=== PATIENT | female | born 1945 | race Caucasian/White ===

== ENCOUNTER 2021-03-02 21:34 | Inpatient (IN) | payer OTHER ==
[~2021-03-02] VITALS: Ht 165.1 cm; Wt 64.4 kg
[2021-03-02 19:48] VITALS: BP 148/66
--- NOTE | 2021-03-03 00:37 | NUR ---
PATIENT ARRIVED ON UNIT AT APPROX 1945 ON 03/02 VIA STRETCHER. PATIENT AMBULATED TO BED X 1 ASSIST, VERY UNSTEADY GAIT, OBVIOUS RIGHT FOOT/LEG PAIN. A&OX4. PLEASANT, ACCEPTABLE TO ADMISSION, THOUGH STATED SHE DIDN'T KNOW SHE WOULD BE IN A ROOM WITH ANOTHER PATIENT. SHE ALSO EXPRESSED UNHAPPINESS WITH NOT HAVING A TV OR PHONE IN THE ROOM. STATED SHE FELL THIS MORNING AND BRUISED HER RIGHT GREAT TOE, BRUISING NOTED. BRUISING AND SWELLING TO RIGHT LOWER EXREMITY FROM A FALL EARLIER IN THE WEEK. PATIENT STATES SHE LOSES HER BALANCE OFTEN. HAS AN EXTENSIVE MEDICAL HX INCLUDING CVAS, BREAST CA, COLON CA, BOWEL BLOCKAGE, HIATAL HERNIA, HYPOTHYROIDISM, HYPERLIPIDEMIA, ANXIETY, RLE FX, PAIN. C/O /10 RLE PAIN AND HAS GUARDING/GRIMACING WITH MOVEMENT/AMBULATION. GIVEN PRN TRAMADOL WITH NIGHT TIME MEDS, EFFECTIVE. CURRENTLY LYING IN BED APPEARING TO BE ASLEEP. LIVES AT HOME WITH OF 58 YEARS WHO HAS SOME MEDICAL PROBLEMS WELL, MS SPECIFICALLY. USES A WALKER AT HOME, BUT IS TOO UNSTEADY FOR WALKER CURRENTLY. WHEELCHAIR OR LESLIE CHAIR USE. STATED SITTING UP RIGHT IS PAINFUL ON HER SPINE. PLACED ON HIGH FALL RISK PRECAUTIONS. WILL CONTINUE TO MONITOR.
[2021-03-03 06:55] LABS: CHOLESTEROL 145 mg/dL (<200); HDL CHOLESTEROL 60 mg/dL (>40); LDL CHOLESTEROL 56 mg/dL (<100); TC:HDL 2.4 Ratio (Not establshd); TRIGLYCERIDE 146 mg/dL (<150); VLDL 29 mg/dL (<40)
[2021-03-03 06:57] LABS: SERUM ASSESSMENT Clear
[2021-03-03 09:40] VITALS: BP 132/83
--- NOTE | 2021-03-03 16:15 | NUR ---
DID COME OUT OF BED BRIEFLY FOR BREAKFAST BEFORE TEARFULLY INSISTING THAT PAIN IS TERRIBLE AND EXACERBATED BY SITTING POSITION "I CAME TO HOSPITAL FOR MY APIN WHAT IS THE DOCTOR GOING TO DO ABOUT THAT" HIGH FALLS RISK WITH MULTIPLE RECENT FALLS-REQUIRES HEAVY ASSIST X1-2 D/T POOR BALANCE-ATAXIA.DENIES SI/SH/HI. APPETIE GOOD. CONVERSATION FOCUSES EXCLUSIVLEY ON MEDICATIONS AND PHYSICAL CONCERNS/ISSUES. ULTRAM 50MG GIVEN PO PRN AT 1200 FOR GENERALIZED PAIN RATED A 10 ON 1-10 SCALE-ALSO REPORTINGT SEVERE ANXIETY RATED A 10 STATING "I THOUGHT I WAS COMING INTO A REAL HOSPITAL WITH A TV TO HAVE MY PAIN CONTROLED" IS ALERT/ORIENTED X4.
[2021-03-03 19:30] VITALS: BP 141/74
[2021-03-03 23:06] LABS: GLYCOHEMOGLOBIN (HGB A1C) 5.2 % (4.8-5.6)
--- NOTE | 2021-03-04 01:17 | NUR ---
PATIENT IS LYING IN BED, NO S/S OF DISTRESS. C/O OF SOME ANXIETY AND GENERALIZED PAIN. PROVIDED PRN CLONIPIN AND ULTRAM. APPEAR TO BE EFFECTIVE. IS PREOCCUPIED WITH SOMATIC COMPLAINTS, DENIES ANY PSYCHIATRIC ISSUES ASIDE FROM ANXIETY. DENIES SI/HI/AVH/DEPRESSION. IS VERY REPETITIVE AND FOCUSED ON THE TORODAL INJECTION SHE RECEIVED EARLIER IN THE DAY. SHE ASSUMED IT WAS A REPETITIVE ORDER AND WAS SURPRISED WHEN TOLD IT WAS A ONE TIME ORDER. HAS DIFFICULTY SLEEPING AND SEEMS TO BE FORGETFUL, SINCE SHE ASKS THE SAME QUESTIONS MANY TIMES. WILL CONTINUE TO MONITOR.
[2021-03-04 10:41] VITALS: BP 154/85
--- NOTE | 2021-03-04 12:38 | NUR ---
SW met with pt who said that she has been falling a lot and does not remember doing it. She says she also has been arguing with her much in the past year, but they normally do not argue. She admits that something is not right with her behaviors and her falls, and she is happy that she will have a neuropsych exam on Tuesday. SW reviewed pt's chart and noticed it lacked a dpoa doc. SW confirmed with pt that her son is dpoa. SW team will continue to follow pt during her stay on this unit.
--- NOTE | 2021-03-04 13:03 | NUR ---
Assess due to new admit to [facility] with hallucinations, closed head injury following a fall. Pt on regular diet, eating 90-100% of meals so far. BMI is 22 wnl. B12 levels wnl. Consider low nutrition risk. Follow wt trends weekly for no significant loss from 133 lb. Low nutrition risk
[2021-03-04 20:14] VITALS: BP 138/56
--- NOTE | 2021-03-04 22:35 | H ---
[facility] [place], [place] [address] HISTORY AND PHYSICAL Name: SHASHA DURANT Room #: 527B-B ADM IN M.R.#: [id number] Admission: 03/02/21 Attend Phys: Idalmis Barbosa DO Discharge: Date of : 41 Report #: [id number] THIS REPORT FOR: cc: FAM - Family physician unknown FAM - Family physician unknown Idalmis Barbosa DO ~ DOC #: [id number] IDALMIS Barbosa DO DATE OF SERVICE: 03/03/2021 INPATIENT PSYCHIATRIC EVALUATION ATTENDING PSYCHIATRIST: Idalmis Barbosa DO MEDICAL CONSULTANTS: Penny Cheng and Mihir Jaime M.D. and his hospitalist team. SOURCES OF INFORMATION: Conversation briefly in the ER with son and , interview with the patient, chart reviewed. CHIEF COMPLAINT: Right hip pain. HISTORY OF PRESENT ILLNESS: This is a 75-year-old female, , who was brought to the ER by her family. ER report noted she has been having severe insomnia, stays up all night, sometimes even over 24 hours continuously. She will have waxing and waning of severe personality changes and when she is "normal" then becomes enraged and has significant cursing. Family also notes that she has hallucinations including seeing people who are not there. She has days where she likes certain foods and the next day she hates them. She did have a fall in the morning that she was admitted where she landed by the refrigerator. She states she hit her head and now has right leg pain. She does have general fibromyalgia and often has severe pain. PAST MEDICAL HISTORY: Includes colon cancer, I am unclear whether she is planning to have it removed or had it removed. Peripheral neuropathy in all extremities, fibromyalgia, chronic constipation, history of 3 transient ischemic attacks. PAST SURGICAL HISTORY: Numerous include tonsillectomy, appendectomy, cervical fusion, low back surgery with pins, blood transfusion with childbirth. She had a TRAM flap in 1986, 6 units of blood transfused at that time. Bilateral mastectomy, no lymph node dissection, precancerous tissue. Cholecystectomy, hiatal hernia repair and hysterectomy. ALLERGIES: STEROIDS AND PENICILLINS. [facility] [place] [place] [address] [place] [address] HISTORY AND PHYSICAL Name: SHASHA DURANT Room #: 527B-B ADM IN ..#: [id number] Admission: 03/02/21 Attend Phys: Idalmis Barbosa DO Discharge: Date of : 41 Report #: [id number] SOCIAL HISTORY: Known history of alcohol abuse. REVIEW OF SYSTEMS: From the ER include: CONSTITUTIONAL: Denies fever, chills, malaise or unexplained weight change. EYES: Denies eye pain, visual change, or discharge. HENT: Denies hearing changes, ear drainage, ear infections, ear pain, neck pain or neck stiffness. RESPIRATORY: Denies cough, shortness of breath, hemoptysis or respiratory distress. CARDIOVASCULAR: Denies chest pain, chest pain with exertion or edema. GASTROINTESTINAL: Denies abdominal pain, nausea, vomiting or diarrhea. GENITOURINARY: Denies, burning, frequency or dysuria. MUSCULOSKELETAL: Denies back pain, joint pain, muscle weakness or myalgias. SKIN: Denies rash. NEUROLOGIC: Denies weakness, headaches or loss of consciousness. Otherwise, 10-point review of systems was negative. IMAGING: From the ER, head CT showed no evidence of acute intracranial hemorrhage or other acute intracranial abnormality. There was a patchy low attenuation within the bilateral periventricular and subcortical white matter consistent with moderate age indeterminate, likely chronic small vessel ischemic changes, mild generalized parenchymal volume loss. Foot x-ray of the right foot showed no acute fracture or dislocation. Cervical spine CT, multilevel cervical spondylosis. No CT evidence of acute cervical spinal fracture or subluxation. PHYSICAL EXAMINATION: VITAL SIGNS: Today, temperature 36.4, pulse 68, respirations 18, BP 132/83, O2 sat 95%. MUSCULOSKELETAL: Lying in bed, complaining of right hip pain, unkempt white female, high risk for falls. MENTAL STATUS EXAMINATION: This is a well developed, BMI 22.1, weight 60.328 kilos, height of 165.1 cm female, wearing glasses. Attention fair. Concentration limited. Speech normal rate, rhythm and tone. Thought process linear and goal directed. Thought content focused somatically. She was oriented to the month, day, date, year, place and hospital. Mood and affect congruent, euthymic. Denied suicidal or homicidal ideation, auditory, visual, or tactile hallucinations. Insight and judgment fair to limited. Fund of knowledge, no greater than average. FORMULATION: A 75-year-old female coming in with combinations of mood lability, psychosis and subjective cognitive impairment. DIAGNOSES: Unspecified psychosis, rule out major neurocognitive disorder, Lewy body dementia is in differential. Medical comorbidities be [facility] [place] [place] [address] [place] [address] HISTORY AND PHYSICAL Name: SHASHA DURANT Room #: 527B-B ADM IN MMatthew.#: [id number] Admission: 03/02/21 Attend Phys: Idalmis Barbosa DO Discharge: Date of : 41 Report #: [id number] managed by the hospitalist include hypokalemia, renal failure, hypertension, hyperlipidemia, history of cerebrovascular accident, history of colon and breast cancer, hypothyroidism, chronic neck pain, degenerative joint disease. PLAN: The patient is a voluntary admit to [facility] at [facility] [place] [place] to evaluate, stabilize. Hospitalist is consulted. At this time, I really do not have a great cognitive diagnosis. CURRENT MEDICATIONS: Ferrous sulfate 325 mg p.o. daily, Zetia 10 mg p.o. daily, duloxetine 30 mg in the morning and 60 mg in the evening, amlodipine 10 mg p.o. daily, pantoprazole 40 mg p.o. daily, levothyroxine 100 mcg oral daily, Klonopin 0.5 mg q. 8 hours p.r.n., lamotrigine 100 mg p.o. at bedtime, Requip 0.25 mg oral at 22:30 hours, memantine 10 mg p.o. b.i.d. I am thinking she has been diagnosed with dementia previously but I will consult Dr. Hi neuropsychology. Estimated length of stay 10-14 days. I will double check with her family if she has had a dementia workup. If not, we will do routine labs. She has already had imaging including B12, folate, syphilis antibody, vitamin D. STRENGTH: She is insured, supportive family. WEAKNESSES: Advanced age, morbidities. Time spent on this case today is greater than 60 minutes, greater than 50% of the time spent on reviewing records and coordination of care. DO ERUM Mike/LUCIAN/BARRINGTON <ELECTRONICALLY SIGNED> By: Idalmis Barbosa DO 03/04/21 [id number] Idalmis Barbosa, /nt
--- NOTE | 2021-03-05 04:47 | NUR ---
Assumed care on 03/04/21 @ 19:15, in bed awake alert and oriented x4. Pleasant affect noted and able to verbalize needs and wants. Took meds whole with water. Requested tramadol 50mg for pain, provided @ 23:10 along with ClonaZepam 0.5mg for anxiety. Bed in low position, bed alarm set.
[2021-03-05 08:43] VITALS: BP 138/81
[2021-03-05 18:33] LABS: CREATININE 1.2 mg/dL (0.6-1.0); POTASSIUM 3.4 mmol/L (3.5-5.1)
--- NOTE | 2021-03-05 19:52 | NUR ---
Alert and orientated X3, denies SI/HI. States she has pain of 8-10 in back with multiple requests to lay down flat. Tramodol given with some relief. Does not show physical symptoms of pain with multiple requests for different items/tasks to be done and then she will mention pain. Slept soundly after Tylenol given in early afternoon. Able to stand and ambulate several steps with minimal assistance. Spent most of day in gerichair or bed. Breath sounds clear. Reg HR auscultated. Color pink with brisk capillary refill and palpable peripheral pulses. Active bowel sounds oer soft, rounded abdomen. States she has not had BM in several days, MOM given per request. Labs drawn, BG 54, repeat accucheck after dinner was 112. K+ 3.4 with cr of 1.2. Msg left for JOSSELINE Larson to call regarding results, Dinorah GÓMEZ will f/u on evening shift.
[2021-03-05 19:54] VITALS: BP 124/61
[2021-03-06 09:57] VITALS: BP 132/68
--- NOTE | 2021-03-06 13:37 | NUR ---
Alert and orientated X4. States she is having alot of pain but not showing s/o distress. Reports pain 9/10 despite Tramadol given early AM and subsequent tylenol. Dr. Barbosa notified, ketrolac given IM per order. Sleeping soundly after med but still reported pain after waking up. Report read to pt by BOTTLE WASHER MACHINE d/t pt stating she couldn't read document. Denies SI/HI. Breath sounds clear. Reg HR auscultated. Color pink with brisk capillary refill and palpable peripheral pulses. Yellow urine per toilet. Active bowel sounds over soft, rounded abdomen. Pt. requesting Senna S, Dr. Ford notified. Pt. able to take several steps with slightly unsteady gait. Currently in day room with peers without s/o distress.
[2021-03-06 19:38] VITALS: BP 121/58
[2021-03-06 20:06] LABS: SYPHILIS AB Non Reactive (Non Reactive)
--- NOTE | 2021-03-07 02:16 | NUR ---
Assumed care on 03/06/21 @ 1915, seated in the day room in a berenice chair, watching TV and socializing with peers and staff. Pleasant affect noted. A&Ox3-4. Able to verbalize needs and wants. Denies SI/HI and hallucinations. Continent and ambulates to toilet with x1-2 assist, unsteady gait noted. Snyder scale of 85, high fall risk. Great toe nail is blue, reports the doctor will work on it for her tomorrow. Pedal pulses present bilat. Respirations even and unlabored bilat, HRRR, ABD N x 4Q and BM on 03/06 noted. Reports pain of /10, Tylenol 650 provided @ 20:00. Reports anxiety, Clonezapam provided @ 21:45. Continues to have back pain and right hip pain of 05/05, Tramadol 50 provided @ 21:45, just before going to sleep. Takes meds whole with water. Bed in low position, bed alarm set. Will continue to monitor as per unit protocol for safety and comfort.
[2021-03-07 07:30] VITALS: BP 146/73
--- NOTE | 2021-03-07 12:58 | NUR ---
Alert and orientated X4. Very concerned with pain. Reminded that she had just received Tramadol. Then c/o burning pain in epigastric region, resolved with mylanta. Requesting Sennokot S stating that she did not have stool as documented. Then asked for clonapam but did not state reason for med. When offered tylenol for pain she stated that she wanted ketrolac like she received yesterday. Above discussed with Dr Godinez who rounded mid morning. When given Tylenol she was snoring upon reassessment. Denies SI/HI. When observed in day room she is smiling, calm and interactive with peers. Breath sounds clear. Reg HR auscultated. Color pink with brisk capillary refill and palpable peripheral pulses. No edema noted. Yellow urine per toilet. Active bowel sounds over soft, flat abdomen. Old bruising on R leg and R great toenail darkened. Ambulates short distances with slightly unsteady gait. Sitting in day room until midmorning when she layed down, states gerichair hurts her back.
[2021-03-07 19:40] VITALS: BP 122/62
--- NOTE | 2021-03-08 05:57 | NUR ---
03-07-21 CARE TRANSFERRED 1899. LATER PT AAOX4, VSS, RR EVEN AND NONLABORED ON RA. PT DENIES SI/HI BUT REPORTS PAIN 8 ON 0-10 SCALE, PT PRESENTS TEARFUL BUT COOPERATIVE. LATER DURING PAIN REASSESSMENT PT REPORTS NO PAIN RELIEF, T REPORTED FEELING ANXIOUS AND NEEDING SOMETHING FOR HER ACID REFLUX. PRN MEDICATION, NOTED PT RESTING WITH EYES CLOSED. ZERO S/S OF ACUTE DISTRESS NOTED, PT WILL CONTINUE TO BE MONITOR PER [facility] PROTOCOL.
[2021-03-08 07:48] VITALS: BP 153/87
[2021-03-08 09:14] VITALS: BP 153/87
[2021-03-08 20:29] VITALS: BP 144/97
--- NOTE | 2021-03-08 21:28 | NUR ---
ASSUMED CARE AT 1900. PATIENT LYING IN BED AWAKE. NO S/S OF DISTRESS. EXPRESSES DISCOMFORT AND GENERALIZED PAIN. PROVIDED SCHEDULED ACETAMINOPHEN WITH HS MEDICATIONS. C/O DRY EYES, PROVIDED PRN EYE DROPS. HAS MULTIPLE SOMATIC COMPLAINTS RELATED TO "TIGHTNESS" AND "RESTLESS" LEGS. ASKS MANY QUESTIONS ABOUT WHAT HER MEDICATIONS ARE AND WHAT THEY ARE FOR. SOMETIMES FORGETS WHICH MEDS ARE MEDS SHE HAS BEEN TAKING AT HOME. PROVIDED RE-EDUCATION. WILL CONTINUE TO MONITOR.
[2021-03-09 09:36] VITALS: BP 148/70
--- NOTE | 2021-03-09 10:52 | NUR ---
Followup: consistently eating well, wts up 9 lb from admit wt 133 lb. Remains low nutrition risk
--- NOTE | 2021-03-09 13:32 | NUR ---
RT Progress Note- Benitez has been present in most recreation therapy groups since her arrival to the unit. Though she has been present, her participation is variable as she frequently complains of pain and inability to actively engage due to this. Most 1;1 conversation is regarding her pain and lack of sleep. She is difficult to redirect from this topic and quickly finds ways to discuss her challenges during conversation. CLASSROOM INSTRUCTIONAL AIDE will continue to encourage participation and development of coping skills.
--- NOTE | 2021-03-09 14:47 | NUR ---
ASSUMED PT CARE THIS AM. PT A&OX4, ABLE TO MAKE NEEDS KNOWN. PATIENT COMPLAINS OF GENERALIZED PAIN, GIVING PAIN MEDS PER EMAR NEEDED. PATIENT DENIES WANTING TRAMADOL UNTIL BEDTIME TONIGHT. PATIENT COMPLAINS OF TINGLING DOWN THE RIGHT LEG A CHRONIC ISSUE. PATIENT HAS BEEN COOPERATIVE WITH CARES.
[2021-03-09 19:43] VITALS: BP 127/63
--- NOTE | 2021-03-09 22:14 | NUR ---
PATIENT CARE ASSUMED AT APPROX 1900. PATIENT LYING IN BED, TALKING TO ON PHONE WHEN THIS HOSPITAL AIDE ENTERED ROOM FOR ASSESSMENT AND MEDICATOIN ADMINISTRATION. PATIENT C/O PAIN 9/10 GENERALIZED PAIN AND CONSISTANTLY C/O POOR SLEEP. PROVIDED PRN TRAMADOL AND TRAZADONE PER EMAR ORDERS. PATIENT STATED SHE WAS TOLD THERE WOULD BE A FAMILY MEETING TOMORROW (TUESDAY) PER THE DOCTOR, BUT SHE STATED NONE OF HER FAMILY HAD BEEN NOTIFIED. SPOKE TO PATIENT'S , WHO STATED HE HAD NOT BEEN NOTIFIED OF ANY MEETING - EXPRESSED TO THAT HE WOULD BE CALLED IN THE MORNING CONCERNING THE MEETING, IF THERE WAS GOING TO BE ONE. PATIENT IS PLEASANT NATURED, THOUGH CAN BE TENDS TO DEMAND MUCH OF THIS HOSPITAL AIDE'S TIME AND CAN BE DIFFICULT TO GET AWAY FROM PATIENT HAS DIFFICULTY ENDING THE CONVERSATION AND CAN BE TANGENTEAL IN HER SPEECH. WILL CONTINUE TO MONITOR.
[2021-03-10 10:28] VITALS: BP 134/71
--- NOTE | 2021-03-10 11:30 | NUR ---
CORDELIA was informed by Dr. Barbosa that he scheduled a family meeting for pt in person at 1300 today to discuss with her and her family her neuropsych reports results. SW team will continue to follow pt during her stay on this unit.
--- NOTE | 2021-03-10 17:33 | NUR ---
Alert and orientated X4. Calm, cooperative and conversive. Denies SI/HI. Requesting eye drops for dry eyes. Breath sounds clear. Reg HR auscultated. Color pink with brisk capillary refill and palpable peripheral pulses. No edema noted. Continent of yellow urine per toilet. Active bowel sounds over soft, rounded abdomen. States she has not had BM since admission, documented BM in last several days. Senna started per order. Ambulating with walker with PT with slightly unsteady gait. Whenever pain is assessed she always rates it a 8-9. She is sitting calmly conversing with peers and appears happy and interactive with no outward signs of distress. Spoke with Dr. Milner and Dr. Barbosa. Tramadol given per Dr. Barbosa order. Upon reassessment of afternoon Tylenol she was focused on epigastric pain, mylanta given. Currently eating dinner without s/o distress, talking with peer.
[2021-03-10 20:33] VITALS: BP 134/64
--- NOTE | 2021-03-11 07:57 | NUR ---
ASSUMED CARE ON 03/10/21 @ 1900, A&oX 3-4 CONTINENT AND AMBULATES TO THE TOILET X1 ASSIST. AFTER MEDICATIONS PROVIDED, ASKS FOR MULTIPLE MEDS REPEATEDLY. REORIENTED TO MEDS PROVIDED. BED IN LOW POSITION, BED ALARM SET.
[2021-03-11 10:40] VITALS: BP 148/89
[2021-03-11 11:19] VITALS: BP 151/81
--- NOTE | 2021-03-11 13:05 | NUR ---
1300 RESUMMED CARE FROM OVERNIGHT SHIFT THIS AM, PATIENT IN ROOM LYING QUIET SHE DID ASK FOR PAIN MEDICATION WHEN DOING MY ASSESSMENT. PATIENT ALERT ORIENTED TIMES 4 PATIENT ATE BREAKFAST TOOK MEDICATION WITHOUT INCIDENCE. PATIENT DENIES SI/HI/AH/VH AT PRESENT PATIENTS ABDOMEN SOFT BOWEL SOUNDS PRESENT. PATIENTS LUNGS CLEAR PATIENT HAS SOME ANXIETY ABOUT THE NEWS SHE; RECEIVED ABOUT HER AND HER GOING TO [facility]ING [facility]AC[facility]. I EXPLAINED TO THE PATIENT THAT SHE NEEDS AROUND THE CLOCK CARE AND HER HAS MS AND HE IS WC BOUND. PATIENT STATES SHE UNDERSTANDS BUT FEELS SHE IS LOSING HER INDEPENDENCE. PATIENT CALM COOPERATIVE PARTICIPATES IN GROUPS WILL CONTINUE TO MONITOR PATIENT FOR SAFETY AND BEHAVIORS.
[2021-03-11 19:18] VITALS: BP 140/75
--- NOTE | 2021-03-12 03:35 | NUR ---
03-11-21 CARE TRANSFERRED 1899. LATER PT AAOX3, VSS, RR EVEN AND NONLABORED ON RA. PT DENIES SI/HI/VAH, PT REPORTS PAIN IN LOWER BACK AT A 9 ON 0-10 SCALE. PT PRESENTS FOCUSED ON PAIN MANAGEMENT, REMAINS CALM AND COOPERATIVE. LATER PT REPOSITIOON FOR COMFORT. DURING MEDICATION ADMIN PT HAD NO DIFFICULTIES TAKING MEDICATION WHOLE WITH WATER. REASSESSMENT OF PAIN NOTED PT RESTING WITH EYE CLOSED. LATER RESPONSED TO BED ALARM OBSERVED PT GAIT WITH WALKER, SHUFFLING UNSTEADY GAIT, STANDBY ASSIST. PT BED WAS ADJUSTED FOR COMFORT AND BE REPORTED HER PAIN WAS A 8 ON 0-10 SCALE. PT REASSURED THAT WE WILL ACCESS AGAIN WHEN TIME FOR NEXT MEDICATION. LATER NOTED PT RESTING WITH EYES CLOSED. PT WILL CONTINUE TO BE MONITOR PER [facility] PROTOCOL.
[2021-03-12 10:01] VITALS: BP 123/64
--- NOTE | 2021-03-12 15:27 | NUR ---
CORDELIA returned Ryland Serra and comfirmed that pt can discharge on Tuesday. CORDELIA and Ryland agreed upon a 1pm discharge. He also said he has an appt with an defense attorney on Tuesday to sign dpoa docs with pt. CORDELIA team will continue following pt during her stay on this unit.
--- NOTE | 2021-03-12 15:58 | NUR ---
Alert and orientated X4. Continues to rate back pain "a high 8" with some relief from Tylenol. Denies SI/HI. Breath sounds clear. Reg HR auscultated. Color pink with brisk capillary refill and palpable peripheral pulses. No edema noted. Yellow urine per toilet. Active bowel sounds over soft, flat abdomen. States she has not had a BM since prior to admission but several are documented. Is on scheduled Senna. Ambulates with slow, steady gait.
[2021-03-12 19:14] VITALS: BP 148/84
--- NOTE | 2021-03-13 02:12 | NUR ---
ASSUMED CARE ON 03/13/21 @ 1900, COOPERATED WITH ASSESSMENT, HRRR, LUNGS CTA BILAT, ABD NX4Q, ABDOMEN ROUND AND FIRM. LARGE FORMED BM OVERNIGHT FOLLOWING PRUNE JUICE AT HS. RATES PAIN 8/10, TRAMADOL AND TYLENOL PROVIDED. ASKS REPEATEDLY FOR PAIN MEDS, REMINDED OF HAVING TAKEN @ HS, REPORTS POOR PAIN MANAGEMENT. REPORTS HAVING SPOKEN TO SON, , GRANDSON AND GRANDDAUGHTER TODAY. ALSO SPOKE TO @ HS. LIKES TO STAY ON THE PHONE LONGER THAN 10 MINUTE TIME LIMIT, RESISTS FOLLOWING HOSPITAL RULES. WILL CONTINUE TO MONITOR PER UNIT PROTOCOL FOR SAFETY AND COMFORT.
[2021-03-13 09:37] VITALS: BP 100/62
--- NOTE | 2021-03-13 13:06 | NUR ---
Alert and orientated X4. Rating pain 8-10 without significant relief from Tylenol, Tramadol and ketrolac. Interactive with peers and staff without s/o distress. Denies SI/HI. Ambulating with walker with slightly irregular gait. Breath sounds clear. Reg HR auscultated. Color pink with brisk capillary refill and palpable peripheral pulses. No edema noted in lower extremities. Yellow urine and large, formed green-brown stool per toilet. Currently sitting in gerichair watching TV with peers. No s/o distress.
[2021-03-13 20:21] VITALS: BP 159/133
--- NOTE | 2021-03-13 22:41 | NUR ---
Alert/oriented x 4, very pleasant. Pain rated at 7 generalized, Lung sounds clear, HRR, Abd soft non tender + BS x 4 Q. Amb with walker, Will continue to monitor through out shift and follow Q 12 min [facility] monitoring per protocol. Denies SI/HI/AH/VH.
[2021-03-14 09:15] VITALS: BP 161/71
[2021-03-14 09:17] VITALS: BP 161/71
--- NOTE | 2021-03-14 09:19 | NUR ---
0915 RESUMMED CARE FROM OVERNIGHT SHIFT THIS AM, PATIENT IN ROOM GETTING READY FOR BREAKFST. PATIENT ALERT ORIENTED TIMES 4 PATIENT DENIES ANY SI/HI/AH/VH AT PRESENT. PATIENTS ABDOMEN SOFT BOWEL SOUNDS PRESENT PATIENTS LUNGS CLEAR. PATIENTS AFFECT BRIGHTER PATIENT IS LESS DRUG SEEKING CALM COOPERATIVE. PATIENT INTERACTS WITH OTHER PATIENTS WILL CONTINUE TO MONITOR PATIENT FOR SAFETY AND BEHAVIORS.
[2021-03-14 19:39] VITALS: BP 140/65
--- NOTE | 2021-03-14 23:42 | NUR ---
Pt is A/O x 4, very pleasant, sitting day room relaxing, wanted to use telephone to call family, uses walker to ambulate, wanted extra blankets when she went to bed. Lung clear, HRR, Active Bowel sounds x 4 q. Pt took her medications w/o difficulty, Denies SI/HI/AH/VH. Will continue to monitor.
[2021-03-15 09:34] VITALS: BP 142/94
--- NOTE | 2021-03-15 09:49 | NUR ---
CORDELIA contacted Ryland Serra to inquire if he was able to choose a psych doctor and a PCP for pt? At pt's family meeting on 03/10 CORDELIA provided to him a listing of providers pt's insurance covers. He said he has yet to identify either yet, and has put in a few calls and is waiting on them to be returned. CORDELIA talked with him about [facility] and advised that it would be good to start services there for psych as only follows pt's for up to 30 days. Ryland said ok. CORDELIA team will continue to follow pt during her stay on this unit.
[2021-03-15 09:54] VITALS: BP 142/94
--- NOTE | 2021-03-15 12:15 | NUR ---
1200 RESUMMED CARE FROM OVERNIGHT SHIFT THIS AM, PATIENT IN ROOM RESTING QUIET. PATIENT CAME TO DAY ROOM ATE BREAKFAST TOOK MEDICATION WITHOUT INCIDENCE. PATIENT ALERT ORIENTED TIMES 4 PATIENT DENIES SI/HI/AH/VH AT PRESENT. PATIENTS ABDOMEN SOFT BOWEL SOUNDS PRESENT PATIENTS LUNGS CLEAR. PATIENT CALM COOPERATIVE INTERACTING WITH OTHER PATIENTS WILL CONTINUE TO MONITOR PATIENT FOR SAFETY AND BEHAVIORS.
[2021-03-15 19:20] VITALS: BP 125/64
--- NOTE | 2021-03-16 01:49 | NUR ---
PATINET CARE WAS RESUMED AT 1900. SHE IS ALAERT AND ORIENTED. SHE AMBULATES WITH MODERATE ASSIST WITH ADLS. SHE C/O PAINS TO HER LOWER BACK AND PRN TRAMADOL WAS GIVEN WITH SOME GOOD EFFECT. BS IS ACTIVE AND LUNGS ARE CLEAR. SHE DENIES AVH/SI/HI. SHE IS VERY HAPPY AND WENT AROUND THANKING THE STAFF FOR GOOD CARE GIVEN TO HER DURING THIS STAY. SHE IS IN BED NOW WITH ALARM ACTIVATED, BED IS LOCKED. SHE HAS A NON SKID SOCKS ON WITH A YELLOW TOP. Q 12 MINUTES CHECK IS ONGOING , CONTINUE CARE.
--- NOTE | 2021-03-16 09:36 | NUR ---
0700 ASSUMED CARE OF PATIENT, PATIENT IN BED AT THAT TIME. PATIENT AMB WITH WALKER WITH STEADY GAIT. PATIENT ALERT, LS CLEAR, BS ACTIVE. VS 149/90, 79, 17, 98.2, 98% RA. C/O PAIN TO LOWER BACK RATING A 8 ON NUMERIC PAIN SCALE. TYLENOL 650MG PO GIVEN FOR PAIN. MEDICATION TAKEN WHOLE WITHOUT DIFFICULTY. AFTER BREAKFAST PATIENT TO ROOM.
[2021-03-16 10:13] VITALS: BP 149/90
--- NOTE | 2021-03-16 11:02 | NUR ---
SW provided resources for discharge to include instructions on how to contact [facility] for follow up and a listing of nursing homes in the area if they decide to they need that resource. SW team will remain available.
--- NOTE | 2021-03-16 12:13 | NUR ---
followup: remains on [facility] since 03/02. Eating 50-100% meals. No new wt since 03/08 which was up 9 lb from admit wt. Low nutrition risk
[2021-03-16] MEDS ORDERED: IRON325 PO (12:40)
[2021-03-16] MEDS ORDERED: ZETIA10 MG PO (12:40)
[2021-03-16] MEDS ORDERED: NORVASC10 MG PO (12:41)
[2021-03-16] MEDS ORDERED: TRAMADOL 50 MG50 MG PO (12:42)
[2021-03-16] MEDS ORDERED: TYLENOL EXTRA500 MG PO (12:44)
[2021-03-16] MEDS ORDERED: LAMICTAL100 MG PO (12:45)
[2021-03-16] MEDS ORDERED: CYMBALTA60 MG PO (12:47)
[2021-03-16] MEDS ORDERED: REQUIP 1 MG TABL1 M1 PO (12:50)
[2021-03-16] MEDS ORDERED: PROTONIX 20 MG20 MG PO (12:51)
[2021-03-16] MEDS ORDERED: NAMENDA 10 MG T10 MG PO (12:51)
[2021-03-16] MEDS ORDERED: PEPCID20 MG PO (12:51)
[2021-03-16] MEDS ORDERED: HOME MEDICATION OPHTHALMIC (12:52)
[2021-03-16] MEDS ORDERED: SYNTHROID100 MC1 PO (12:52)
[2021-03-16 13:03] VITALS: BP 149/90
--- NOTE | 2021-03-17 09:14 | D ---
[facility] [place] [address] DISCHARGE SUMMARY Name: SHASHA DURANT Room #: 527B-B [facility] IN M.R.#: [id number] Admission: 03/02/21 Attend Phys: Idalmis Barbosa DO Discharge: 03/16/21 Date of : 41 Report #: [id number] THIS REPORT FOR: cc: FAM - Family physician unknown FAM - Family physician unknown Idalmis Barbosa DO ~ DOC #: [id number] IDALMIS Barbosa DO DATE OF SERVICE: 03/16/2021 INPATIENT PSYCHIATRIC DISCHARGE SUMMARY DATE OF ADMISSION: 03/02/2021 DATE OF DISCHARGE: 03/16/2021. ATTENDING PSYCHIATRIST: Idalmis Barbosa DO MARINE SPECIALIST: Samuel Godinez MD. CONSULTING PHYSICIAN: Amandeep Hi, Ph.D. Neuropsychology. DISCHARGE DIAGNOSES: Major neurocognitive disorder, major neurocognitive disorder, officially unspecified; however , there was some evidence of cerebrovascular disease and less likely Lewy body disease with behavioral disturbance. Additionally, diagnosis includes unspecified psychosis resolved. Medical comorbidities include status post fall; hypokalemia, replaced; mild renal failure; hypertension; hyperlipidemia; history of remote cerebrovascular accident; history of colon cancer; breast cancer; hypothyroidism; chronic neck pain; degenerative joint disease. The patient is discharging to her private residence where she lives with her . The patient requires 24/ care and supervision. This has been made clear to her and son, Ryland. They agreed to provide this. Officially, I did recommend assisted living placement for the patient and her at this point, but family is wanting to look into that further after discharge. DISCHARGE MEDICATIONS: Discharge medications were sent to the [facility]: Ferrous sulfate 325 mg oral daily for supplementation, ezetimibe, which is Zetia 10 mg oral daily for hypertriglyceridemia, amlodipine besylate 10 mg oral daily for hypertension. Hold, if BP less than 100. Tramadol 50 mg q. 6 hours p.r.n. for pain level 6-10, Rx was given strictly for #15 for that, Tylenol scheduled 1000 mg oral 3 times a day for chronic pain, lamotrigine 100 mg oral at bedtime for mood stabilization, duloxetine 60 mg oral twice daily for depression, Requip 0.5 mg oral daily at 1200 and 2100 for restless legs syndrome, memantine 10 mg oral twice daily for cognitive enhancement, famotidine 20 mg oral daily for GERD, pantoprazole 40 mg also oral daily for GERD, levothyroxine 100 mcg oral daily for thyroid replacement and she [address] [address] DISCHARGE SUMMARY Name: JOSE DURANTMAGUIJosie Maximo Room #: 527B-B [facility] IN M.R.#: [id number] Admission: 03/02/21 Attend Phys: Idalmis Barbosa, Discharge: 03/16/21 Date of : 41 Report #: [id number] has a dry eye home preparation every 2 hours as needed for dry eyes. DIET: The patient has a regular diet. ACTIVITY LEVEL: She is a min assist with a walker for ambulation. The patient was given crisis suicide hotline information. AFTERCARE: As follows: She was referred to [facility] to establish outpatient psychiatric care. The patient has a primary care physician, encouraged to see within one month. LABORATORY DATA: On this admission, hematology from 03/02/2021, white count slightly low at 3.7, H and H 12.4 and 37.4, platelet count 244. Chemistries on this admission, sodium 148, potassium 3.4, chloride 103, bicarbonate 24, anion gap 15, BUN 18, creatinine 1.3, estimated GFR 44, glucose 54. Estimated average glucose 103. A1c 5.2, calcium 9.2, total bilirubin 0.4, AST 23, ALT 24, alkaline phosphatase 129, total protein 7.3, albumin 3.8, triglycerides 146, cholesterol 145, LDL 56, HDL 60. Vitamin D normal at 56.6. TSH normal at 2.337. B12 normal at 867. Urinalysis showed trace blood, otherwise normal. Syphilis serology nonreactive. COVID-19 Merrill test was negative. IMAGING: On this admission, she had a head CT on 03/02/2021, which showed no evidence of acute intracranial hemorrhage or other acute intracranial abnormality. 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 REASON FOR ADMISSION: A 75-year-old female, , living with her , brought to the ER by her family. They report the patient is having severe insomnia, staying up all night, sometimes over 24 hours. They have noticed personality change, her becoming enraged, uncharacteristic cursing, which is new for her. Also, reports she has hallucinations including seeing people, who were not there. She did have a fall in the morning that she was brought to the ER where she landed by the refrigerator. She states she hit her head and now has right leg pain at the time of admission. HOSPITAL COURSE: The patient was admitted to Geriatric Psychiatry Unit. I had been given a heads up of her admission through a hospital employee as an occupational therapist and knows her granddaughter. In any event, there was concern for her developing dementia, so I did a full workup including consulting neuropsychologist. Neuropsychological testing was done around 03/06/[address] Hi. Findings were neuropsych profile consistent with major neurocognitive disorder, probable vascular disease and possible lewy body disease, with agitation and disinhibited behavior of moderate severity as well as major depressive disorder, recurrent. [facility] [address] [address] DISCHARGE SUMMARY Name: LINAJessicaCOLLINSDEVAN Marsh Room #: 527B-B [facility] IN [facility].#: [id number] Admission: 03/02/21 Attend Phys: Idalmis Barbosa DO Discharge: 03/16/21 Date of : 41 Report #: [id number] During the admission, the patient was highly somatically focused. We went back and forth for several pain management regimes, ended up allowing her to have a tramadol regime and discontinue clonazepam. It was flushed out, but the patient had a history of misuse of both yydt-[id number] medications, possibly prescription medications including diphenhydramine. The patient disputed she had a history of alcohol. Over the course of admission, the patient was sleeping well, eating decent, making gains with physical therapy in terms of her gait, and endurance. We had a couple of family meetings including a sit-down, formal one. Decision was made by the family for the patient to return home initially. Today, at the day of discharge, the patient was not suicidal or homicidal. BMI on discharge 23.6, temperature 36.8, pulse 79, respirations 17, BP 149/90, O2 sat 99%. Musculoskeletal exam, she has an assisted gait, using a walker, standby assist. Wears glasses. The glasses have been broken throughout the admission. MENTAL STATUS EXAM: This is a well-developed, somewhat ill-appearing female, appearing stated age at least. Attention, concentration fair. Speech normal rate, volume, and tone. Thought process is linear and goal directed. Thought content: Focused on the present and discharge. Denied suicidal or homicidal ideation. Denied auditory, visual, or tactile hallucinations. Mood is fairly calm, euthymic, and congruent. Memory noted to be impaired, not formally tested today. Insight limited. Judgment limited. Fund of knowledge, no greater than average at this point. PROGNOSIS: For this patient is fair to guarded given her age of 75, having a neurodegenerative disorder. IDALMIS Barbosa DO AHK/H/TRYOI <ELECTRONICALLY SIGNED> By: Idalmis Barbosa DO 03/17/2114 16 [id number] Idalmis Barbosa DO /nt
== END 2021-03-16 14:00 | disposition home or self-care (01) | DRG 884 ==
LOC: SBH 21:34
PROVIDERS: Hospitalist; ADMIT Psychiatry & Neurology Psychiatry; ATTEND Psychiatry & Neurology Psychiatry
DX: F01.50 Vascular dementia, unspecified severity, without behavioral disturbance, psychotic disturbance, mood disturbance, and anxiety (principal); F33.2 Major depressive disorder, recurrent severe without psychotic features; E87.6 Hypokalemia; I10 Essential (primary) hypertension; E78.5 Hyperlipidemia, unspecified; E03.9 Hypothyroidism, unspecified; G89.29 Other chronic pain; M19.90 Unspecified osteoarthritis, unspecified site; G25.81 Restless legs syndrome; K21.9 Gastro-esophageal reflux disease without esophagitis; G62.9 Polyneuropathy, unspecified; K59.09 Other constipation; M79.7 Fibromyalgia; G47.00 Insomnia, unspecified; Z86.73 Personal history of transient ischemic attack (TIA), and cerebral infarction without residual deficits; Z85.3 Personal history of malignant neoplasm of breast; Z85.038 Personal history of other malignant neoplasm of large intestine; Z98.1 Arthrodesis status; Z90.710 Acquired absence of both cervix and uterus; Z90.49 Acquired absence of other specified parts of digestive tract; Z88.8 Allergy status to other drugs, medicaments and biological substances; Z88.0 Allergy status to penicillin
CPT/HCPCS: 10880